=== PATIENT | male | born 1950 | race Caucasian/White ===

== ENCOUNTER 2022-10-12 12:10 | Emergency (ER) | payer BC, SELFPAY ==
[2022-10-12 12:15] VITALS: BP 126/74; PULSE 53; RESP 18; TEMP 36.6; O2SAT 97; BMI 28.8
--- NOTE | 2022-10-12 12:22 | ECG_ITS ---
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
[2022-10-12 12:44] VITALS: BP 132/70; PULSE 51
[2022-10-12 12:46] VITALS: BP 126/88; BP 130/78; PULSE 52; PULSE 55
[2022-10-12 12:47] LABS: Basophils Percent Auto 0.6 % (0.2-2.0); Eosinophils Absolute Auto 0.2 10^3/uL (0.0-0.7); Eosinophils Percent Auto 2.4 % (0.9-7.0); Hematocrit 40.4 % (42.0-54.0); Hemoglobin 13.3 g/dL (14.0-18.0); Immature Granulocytes Abs Auto 0.04 10^3/uL (0.00-0.03); Immature Granulocytes Pct Auto 0.6 % (0.0-0.5); Lymphocytes Absolute Auto 1.3 10^3/uL (1.2-3.8); Lymphocytes Percent Auto 21.4 % (20.5-60.0); Mean Corpuscular HGB Conc 32.9 g/dL (29.9-35.2); Mean Corpuscular Hemoglobin 28.9 pg (25.9-34.0); Mean Corpuscular Volume 87.6 fL (80.0-94.0); Mean Platelet Volume 10.4 fL (9.5-13.5); Monocytes Absolute Auto 0.4 10^3/uL (0.3-0.8); Monocytes Percent Auto 6.8 % (1.7-12.0); Neutrophils Absolute Auto 4.2 10^3/uL (1.4-6.5); Neutrophils Percent Auto 68.2 % (43.0-75.0); Platelet Count 278 10^3/uL (150-450); Red Blood Count 4.61 10^6/uL (4.70-6.10); Red Cell Distribution Width 13.5 % (11.0-15.0); White Blood Count 6.2 10^3/uL (4.0-11.0)
[2022-10-12 12:51] LABS: Anion Gap 14.2; BUN Creatinine Ratio 12.7; Carbon Dioxide 26.3 mmol/L (21.0-32.0); Chloride 104 mmol/L (98-107); Estimated GFR (African America >60 (>=60); Estimated GFR (Non-African Ame >60 (>=60); Glucose 103 mg/dL (74-106); Potassium 4.5 mmol/L (3.5-5.1); Sodium 140 mmol/L (136-145)
[2022-10-12] MEDS: MECLIZINE HCL 12.5 MG TABLET 25 MG PO (13:06)
--- NOTE | 2022-10-12 13:20 | ED_ITS ---
HPI - Dizziness General Chief Complaint: Dizziness Stated Complaint: NAUSEA/DIZZINESS Time Seen by Provider: 10/12/22 12:17 Source: patient Mode of arrival: walk-in History of Present Illness HPI Narrative: patient has been experiencing morning dizziness for the last couple of weeks. Denies recent injury to the head or neck. No URI symptoms immediately prior to the onset of the dizziness. He has not previously been diagnosed with vertigo. He describes it as the sensation of movement or spinning when he first wakes - it resolves as he gets up and performs his ADLs. No recent visual changes or ringing in the ears - he had visual changes 2 years ago and had his prescription checked and it was ok . He also gets whooshing or roaring in both ears but that is also chronic. No recent vomiting or diarrhea. he said that his appetite has been normal. Related Data Previous Rx's Medication Instructions Recorded meclizine 25 mg tablet 25 mg PO TID PRN dizziness #30 tabs 10/12/22 Allergies Allergy/AdvReac Type Severity Reaction Status Date / Time No Known Drug Allergies Allergy Verified 10/12/22 12:22 Exam Narrative Exam Narrative: Nurses notes and vital signs reviewed and patient is not hypoxic. afebrile General: Well-appearing and in no apparent distress. Skin: Warm, dry, no pallor noted. Head: Normocephalic, atraumatic. Neck: Supple, non-tender. no carotid bruits. Eye: Pupils are equal, round and EOMI. No scleral icterus. Ears, Nose, Mouth, and Throat: TM are clear, no nasal mucosal hypertrophy. Oral mucosa is moist, no posterior oropharynx erythema, uvula is mid-line Cardiovascular: Regular Rate and Rhythm without murmur, gallop or rub. Respiratory: No accessory muscle use or respiratory distress. Lungs are clear to auscultation, no wheezing, rales or rhonchi Musculoskeletal: normal ROM, no calf or popliteal tenderness, no lower extremity edema/swelling GI: Abdomen is soft, non-distended. Normal bowel sounds. No tenderness to palpation. No rebound, guarding, or rigidity noted. Neurological: A&O x4. No cranial nerve dysfunction observed. No truncal ataxia. Moves all extremities. Sensation intact. Psychiatric: Cooperative and interactive. Normal mood and affect. Constitutional Vital Signs, click to edit/add: Last Vital Signs Temp 97.9 F 08/24/23 12:15 Pulse 52 L 10/12/22 12:46 Resp 18 10/12/22 12:15 BP 126/88 10/12/22 12:46 Pulse Ox 97 10/12/22 12:15 O2 Del Method Room Air 10/12/22 12:15 Course Vital Signs Vital signs: Vital Signs Temperature 97.9 F 10/12/22 12:15 Pulse Rate 53 L 10/12/22 12:15 Respiratory Rate 18 10/12/22 12:15 Blood Pressure 126/74 10/12/22 12:15 Pulse Oximetry 97 10/12/22 12:15 Oxygen Delivery Method Room Air 10/12/22 12:15 Temperature 97.9 F 10/12/22 12:15 Pulse Rate 52 L 10/12/22 12:46 Respiratory Rate 18 10/12/22 12:15 Blood Pressure 126/88 10/12/22 12:46 Pulse Oximetry 97 10/12/22 12:15 Oxygen Delivery Method Room Air 10/12/22 12:15 MDM - Dizziness MDM Narrative Medical decision making narrative: Patient was placed on telemetry monitor and EKG obtained. Blood drawn and sent for evaluation. orthostatic vital signs were negative. at this time, positional changes and movement of the head did not causes patient to develop symptoms. He is asymptomatic. I informed the patient of his negative workup. I prescribed meclizine for him to take twice a day over the next few days to see if that resolves his morning dizziness. He can see his primary care physician for follow-up. Lab Data Attestation: I reviewed the patient's lab results. Labs: Lab Results 10/12/22 Range/Units 12:30 WBC 6.2 (4.0-11.0) 10^3/uL RBC 4.61 L (4.70-6.10) 10^6/uL Hgb 13.3 L (14.0-18.0) g/dL Hct 40.4 L (42.0-54.0) % MCV 87.6 (80.0-94.0) fL MCH 28.9 (25.9-34.0) pg MCHC 32.9 (29.9-35.2) g/dL RDW 13.5 (11.0-15.0) % Plt Count 278 (150-450) 10^3/uL MPV 10.4 (9.5-13.5) fL Neut % (Auto) 68.2 (43.0-75.0) % Lymph % (Auto) 21.4 (20.5-60.0) % [place] % (Auto) 6.8 (1.7-12.0) % Eos % (Auto) 2.4 (0.9-7.0) % Baso % (Auto) 0.6 (0.2-2.0) % Neut # (Auto) 4.2 (1.4-6.5) 10^3/uL Lymph # (Auto) 1.3 (1.2-3.8) 10^3/uL [place] # (Auto) 0.4 (0.3-0.8) 10^3/uL Eos # (Auto) 0.2 (0.0-0.7) 10^3/uL Baso # (Auto) 0.0 (0.0-0.1) 10^3/uL Abs Immat Gran (auto) 0.04 H (0.00-0.03) 10^3/uL Imm/Tot Granulo (auto) 0.6 H (0.0-0.5) % Sodium 140 (136-145) mmol/L Potassium 4.5 (3.5-5.1) mmol/L Chloride 104 (98-107) mmol/L Carbon Dioxide 26.3 (21.0-32.0) mmol/L Anion Gap 14.2 BUN 15.0 (7.0-18.0) mg/dL Creatinine 1.18 (0.70-1.30) mg/dL Est GFR ( Amer) >60 (>=60) Est GFR (Non-Af Amer) >60 (>=60) BUN/Creatinine Ratio 12.7 Glucose 103 (74-106) mg/dL Calcium 9.0 (8.5-10.1) mg/dL ECG Data Attestation: I personally reviewed and interpreted this ECG as follows: Interpretation: EKG interpretation: Emergency Department physician interpretation. sinus bradycardia rhythm at 50bpm. Normal axis, normal intervals, we'll discharge her for left ventricular hypertrophy, RSR in lead V1 consistent with right ventricular conduction delay. no ST segment elevation or depression. Discharge Plan Discharge Chief Complaint: Dizziness Clinical Impression: Dizziness Patient Disposition: Home, Self-Care Time of Disposition Decision: 13:25 Prescriptions / Home Meds: New meclizine 25 mg tablet 25 mg PO TID PRN (Reason: dizziness) Qty: 30 0RF Instructions: Dizziness (ED) Stand Alone Forms: Portal Instructions Referrals: Physician,Non-Staff, MD [Primary Care Provider] - 1 week
== END 2022-10-12 13:33 | disposition home or self-care (01) ==
PROVIDERS: Emergency Provider Emergency Medicine
DX: R42 Dizziness and giddiness (principal)
CPT/HCPCS: 36415; 80048; 85025; 93005; 99284

== ENCOUNTER 2025-01-21 11:24 | Emergency (ER) | payer MEDICARE, BC, SELFPAY ==
--- OUTSIDE RECORDS SUMMARY | 2025-01-07 19:11 | XMS_ITS | Continuity of Care Document ---
Author Organization [facility] Address [address] [place] [address] Phone Care Team Providers Care Bee Worker Name Role Phone Berry Guo MD Attending Provider NON STAFF Primary Care Provider Unavailabl e Care Teams Patient Care Team Team Status: Active Member Role/Relationship Status Dates NON STAFF Primary Care Provider Active Visit Care Team Team Status: Inactive Member Role/Relationship Status Dates Berry Guo MD Attending Provider Activ e Start: January 07, 2025 End: January 07, 2025NON STAFFPrimary Care ProviderActiveStart: January 07, 2025 End: January 07, 2025 Visit Care Team Team Status: Inactive Member Role/Relationship Status Dates NON STAFF Primary Care Provider Active Start: January 07, 2025 End: January 07, 2025Geormichelle Guo MDAttending ProviderActive Start: January 07, 2025 End: January 07, 2025 Chief Complaint and Reason for Visit Chief Complaint Admit Date WEAVER and dizziness January 07, 2025 8:47am Reason for Visit Admit Date Aortic aneurysm, thoracic January 07, 2025 8:47am Aortic stenosis January 07, 2025 8:47am Essential (primary) hypertension Novembe r 2024 8:47am Sinus bradycardia January 07, 2025 8:47am Allergies, Adverse Reactions, Alerts Allergen Type Severity Reaction Last Updated Verified Status No Known Allergies Allergy Unknown January 07, 2025 8:59amYesActive Social History Smoking Status Status Start Date End Date Date of Observa tion Never smoked tobacco (finding) January 07, 2025 9:03am Observation Status Observation Response Date of Response Legal Sex [facility] (finding) [facility] 1950 Family History Relationship Condition Age at Onset Recorded Date/T carlee father Hypertension Unknown DeceasedUnknownHeart diseaseUnknownmotherDeceasedUnknown Problems Active Problems Problem Diagnosis/Recorded Date Onset Date Stat Aortic aneurysm, thoracic January 07, 2025 10:31am Unknown Active Aortic stenosis January 07, 2025 10:31am Unknown Active Essential (primary) hypertension January 07, 2025 1 0:31am Unknown Active Medications Medication Status Dose Units Route Directions Qty Days Refills S tart Date Stop Date End Date Reason(s) Instructions Adherence Carvedilol 25 mg tablet Active 25 MG PO Twice da jody January 07, 2025 12:00amUnknownPravastatin 40 mg fnfkuqTrrtes09QBAEPrwai January 07, 2025 12:00amUnknownAspirin (Adult Low Dose Aspirin) 81 mg tablet,delayed release (DR/EC)Ihhzhf85PGDJIrmbaRxgqwqqr 19th, 2025 12:00am UnknownLosartan 100 mg vxjrudFpnmqa502PWCGDjqtsUewwanzx 19th, 2025 12:00am UnknownAmlodipine 5 mg uzzzcbCbjjdq8CMRWXemih04707Zvnvqkro 19th, 2025 12:00am Unknown Vital Signs Vital Reading Result Reference Range Collection Date/Time Height 68.5 [in_i] January 07, 2025 9:42xaEufgtp38.27 kgJanuary 07, 2025 9:04amHeart Rate45 /zdd41-967WdsgmnemJanuary 07, 2025 9:04amRespiratory rate18 /phb65-52QyicrmxdJanuary 07, 2025 9:04amOxygen saturation by Pulse khamawjj41 %95-100January 07, 2025 9:04amBP Jxnmxgab663 mm[Hg]100-140January 07, 2025 9:04amBP Frbysznmg63 mm[Hg]60-100January 07, 2025 9:04amBMI (Body Mass Index)28.1 kg/r5VtwfctpjJanuary 07, 2025 9:04am Advance Directives Advance Directive Response Recorded Date/ Time Advance Directives Yes December 8:47am Insurance Providers Guarantor Samuel Hawkins Address [address] [place] [id number] Info.Home Phone: H Coverage Status Update:2025 Payer Group Member ID Coverage Type Subscriber Relationship to Subscriber Effective Date Expiration Date Jenny BORREGO Id: [id number] J Ross Id: [id number] [address] [place] [id number] Home Phone: HSelfMedicare Nonpatient [id number] J Ross Id: [id number] [address] [place] [phone] Home Phone: HSelf Encounters Encounter Location(s) Arrival/Admit Date Discharge/Departure Date Discharge/Departure Disposition Provider(s) Departed Physician/ Provider Office Visit -[facility] Cardiology January 07, 2025 8:47am January 07, 2025 9:33am Discharged to home care or self care (routine discharge) Berry Guo MD Departed Clinical -EKG Cardiology January 07, 2025 8:48am January 07, 2025 8:49am Discharged to home care or self care (routine discharge) Berry Guo MD Recent Diagnosis Onset Date Admit Date Aortic aneurysm, thoracic Unknown Novemb er 2024 8:47am Aortic stenosis Unknown January 07, 8:47am Essential (primary) hypertension Unknown January 07, 2025 8:47am Sinus bradycardia Unknown January 07, 2025 8:47am Assessments Diagnosis Onset Date Resolution Status Admit Date Aortic aneurysm, thoracic acuteNovember 2024 8:47amAortic stenosisacuteNovember 2024 8:47am Essential (primary) hypertensionacuteNovember 2024 8:47amSinus bradycardia noneactiveNov2024 8:47am Plan of Treatment Author [facility] 10:33am# Aortic aneurysm - Thoracic ~5.0 cm aortic aneurysm at the [facility]. # Hypertension, uncontrolled - Occasionally is uncontrolled. # Aortic valve stenosis - Per patient. # Sinus bradycardia - Heart rate 45 BPM on EKG, patient on carvedilol. # Other: Prostate cancer status post radiation therapy, lung nodule, renal mass, nephrolithiasis. EKG 01/07/2025 ??? sinus bradycardia, 45 bpm, LVH, nonspecific T wave changes, QRS 80 ms, QTc 390 ms. - Continue carvedilol and losartan. Add amlodipine 5 mg daily for blood pressure control, prescription sent to [facility]. - Request medical records from [facility] including echocardiogram and CT/CTA chest from August-September 2024, stress test results, and cardiac catheterization records. - Will consider cardiothoracic surgery referral to [facility] for evaluation of aortic aneurysm and aortic valve disease once imaging is reviewed. - Defer stress testing until severity of aortic stenosis and aortic dimensions are confirmed, as severe aortic stenosis would contraindicate treadmill testing. If aortic aneurysm confirmed at 5 cm and surgery recommended, cardiac catheterization may be required prior to surgical intervention. - [facility] and formulate definitive management plan. Future Tests Future scheduled test information is unavailable Pending Tests Pending diagnostic test information is unavailable Future Visits Future appointment information is unavailable Future Procedures Future procedure information is unavailable Future Medications Future medication information is unavailable Patient Instructions Patient instructions are unavailable
[2025-01-21 11:27] VITALS: BP 138/77; PULSE 56; O2SAT 100; BMI 28.3
--- NOTE | 2025-01-21 11:38 | CT_ITS ---
The [address] [address] Patient Name: EDGAR GASCA MRN: [id number] date: 1950 Sex: M Assigned Patient Location: ER Current Patient Location: [facility] Accession/Order Number: [id number] Exam Date: 01/21/2025 12:10 Report Date: 01/21/2025 13:00 At the request of: TIANA DESOUZA MD Procedure: CT head/brain wo con CT head/brain wo con 01/21/2025 12:20 PM SIGNS AND SYMPTOMS: ^Headache TECHNIQUE:Multi-detector CT axial slices of the brain were obtained without IV contrast. CT was performed with one or more of the following dose reduction techniques: Automated exposure control, adjustment of the mA and/or kV according to patient size, or use of iterative reconstruction technique. COMPARISON: None. FINDINGS: There is no shift of the midline structures, acute intracranial bleeding, mass effects, or evidence of acute ischemia. Atherosclerotic changes are noted in the V4 segments of the vertebral arteries and intracranial segments of the internal carotid arteries. There is age-related cortical atrophy. The ventricular system is normal in size. The brainstem and the cerebellum are unremarkable. The visualized intraorbital contents and the infratemporal soft tissues show no acute abnormality. There is partial opacification of the right frontal sinus. Mild mucosal thickening is noted in the right maxillary sinus. The osseous structures in the skull base and the calvarium show no abnormality. CT/CT head/brain wo con IMPRESSION: No acute intracranial pathology. 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 Impression dictated by: Bladimir Acuna M.D. 01/21/2025 1:00 PM Dictation Location: [place] [address] Electronically authenticated by: [id number] Y Date: 01/21/2025 13:00
--- NOTE | 2025-01-21 11:38 | CT_ITS ---
The [address] [address] Patient Name: EDGAR GASCA MRN: [id number] date: 1950 Sex: M Assigned Patient Location: ER Current Patient Location: [facility] Accession/Order Number: [id number] Exam Date: 01/21/2025 12:10 Report Date: 01/21/2025 13:04 At the request of: TIANA DESOUZA MD Procedure: CT cervical spine wo con CT cervical spine wo con 01/21/2025 12:20 PM SIGN AND SYMPTOMS: ^Neck pain TECHNIQUE: Multi detector CT axial slices of the cervical spine were obtained without IV contrast. Volumetric acquisition sagittal, coronal, and 3-D reconstructions were performed and reviewed. CT was performed with one or more of the following dose reduction techniques: Automated exposure control, adjustment of the mA and/or kV according to patient size, or use of iterative reconstruction technique. COMPARISON: None. FINDINGS: There is preservation of the vertebral body heights and intervertebral discs. Facet degenerative changes are present, greatest at C3-C4 and C7-T1. No fractures or dislocations are seen. The alignment of the cervical spine is normal. The craniocervical junction is within normal limits. Degenerative changes are noted in the lateral axial joint. The prevertebral soft tissues are within normal limits. The paraspinous soft tissues are within normal limits. Atherosclerotic changes are noted in the carotid bifurcations. The lung apices are unremarkable. CT/CT cervical spine wo con IMPRESSION: No fracture or subluxation. Degenerative changes are noted throughout cervical spine as above. Impression dictated by: Bladimir Acuna M.D. 01/21/2025 1:04 PM Dictation Location: [place] [address] Electronically authenticated by: [id number] Y Date: 01/21/2025 13:04
--- NOTE | 2025-01-21 11:39 | ED_ITS ---
HPI HPI - General Adult General Chief complaint: Headache Stated complaint: HEADACHE, NECK PAIN Time Seen by Provider: 01/21/25 11:29 Source: patient Mode of arrival: walk-in Limitations: no limitations History of Present Illness HPI narrative: 74-year-old male presents for a 3-day history of neck pain and headache. No trauma or fever or localized weakness. He did not have any unusual activity. He states it feels better today than it did yesterday which was the worst day. He had meningitis he states within the last 5 years. Related Data Home Medications ?Medication ?Instructions ?Recorded ?Confirmed amlodipine 5 mg tablet 5 mg PO DAILY 01/21/2501/21 Previous Rx's ?Medication ?Instructions ?Recorded meclizine 25 mg tablet 25 mg PO TID PRN dizziness # 30 tabs 10/12/22 methocarbamol 500 mg tablet 500 mg PO Q8H PRN pain #20 tabs 01/21/25 Allergies Allergy/AdvReac Type Severity Reaction Status Date / Time No Known Drug Allergies Allergy Verified 10/12/22 12:22 Opioid HPI Opioid Management Most Recent Opioid Data: Last Pain Scale 5 Today, 12:00 Last MAR Pain Assessment Today, 12:00 Review of Systems ROS Narrative A ten point review of systems is negative except as noted above. PFSH PFSH Social History Little interest or pleasure in doing things: not at all Feeling down, depressed, or hopeless: not at all Exam Narrative Exam Narrative: Nurses note and vital signs reviewed General:The patient appears well and in no apparent distress.Patient is resting comfortably on cart. Skin:Warm, dry, no pallor noted.There is no rash noted. Head:Normocephalic, atraumatic; his neck has good range of motion though this causes some discomfort. He is able to touch his chin down on his chest. Eye: Normal conjunctiva, no drainage Ears, Nose, Mouth, and Throat: oral mucosa is moist. Nares patent. Cardiovascular:Regular Rate and Rhythm Respiratory:Patient is in no distress, no accessory muscle use, lungs are clear to auscultation, no wheezing, rales or rhonchi Back:non-tender GI: Soft and nontender Musculoskeletal: The patient has no evidence of calf tenderness, no pitting ed zenobia, symmetrical pulses noted bilaterally Neurological:A&O x4, normal speech; upper and lower extremity strength 5 out of 5 and symmetric Psychiatric:Cooperative Constitutional Vital Signs, click to edit/add: Last Vital Signs Temp 97.8 F 01/21/25 13:03 Pulse 48 L 01/21/25 12:23 Resp 18 01/21/25 12:23 BP 156/91 H 01/21/25 13:04 Pulse Ox 98 01/21/25 12:23 O2 Del Method Room Air 01/21/25 11:27 Course Vital Signs Vital signs: Vital Signs Pulse Rate 56 L 01/21/25 11:27 Respiratory Rate 18 01/21/25 11:27 Blood Pressure 138/77 01/21/25 11:27 Pulse Oximetry 100 01/21/25 11:27 Oxygen Delivery Method Room Air 01/21/25 11:27 Temperature 97.8 F 01/21/25 13:03 Pulse Rate 48 L 01/21/25 12:23 Respiratory Rate 18 01/21/25 12:23 Blood Pressure 156/91 H 01/21/25 13:04 Pulse Oximetry 98 01/21/25 12:23 Oxygen Delivery Method Room Air 01/21/25 11:27 Medical Decision Making MDM Narrative Medical decision making narrative: Brain CT is negative and CT of the C-spine shows some degenerative changes. WBC is normal. He does not have a fever. He is feeling improved after being given IV Toradol and Norflex. At this point I do not suspect meningitis and lumbar puncture is not indicated. Treatment diagnosis and follow-up were discussed with the patient. Differential Diagnosis Differential Diagnosis: Muscle pain, torticollis, cervical arthritis, meningitis Lab Data Lab results reviewed: Yes I reviewed the patient's lab results Labs: Lab Results 01/21/25 Range/Units 11:47 WBC 4.4 (4.0-11.0) 10^3/uL RBC 3.99 L (4.70-6.10) 10^6/uL Hgb 12.3 L (14.0-18.0) g/dL Hct 36.2 L (42.0-54.0) % MCV 90.7 (80.0-94.0) fL MCH 30.8 (25.9-34.0) pg MCHC 34.0 (29.9-35.2) g/dL RDW 14.8 (11.0-15.0) % Plt Count 161 (150-450) 10^3/uL MPV 9.9 (9.5-13.5) fL Seg Neuts % (Manual) 82.0 H (43.0-75.0) Lymphocytes % (Manual) 6.0 L (20.5-60.0) % Monocytes % (Manual) 8.0 (1.7-12.0) % Eosinophils % (Manual) 4.0 (0.9-7.0) % Basophils % (Manual) 0.0 L (0.2-2.0) % Neutrophils # (Manual) 3.60 (1.4-6.5) 10^3/uL Lymphocytes # (Manual) 0.26 L (1.20-3.80) 10^3/uL Monocytes # (Manual) 0.35 (0.30-0.80) 10^3/uL Eosinophils # (Manual) 0.17 (0.00-0.70) 10^3/uL Basophils # (Manual) 0.00 (0.00-0.10) 10^3/uL Sodium 139 (136-145) mmol/L Potassium 4.4 (3.5-5.1) mmol/L Chloride 105 (98-107) mmol/L Carbon Dioxide 29.4 (21.0-32.0) mmol/L Anion Gap 9.0 BUN 24.0 H (7.0-18.0) mg/dL Creatinine 1.20 (0.70-1.30) mg/dL Est GFR ( Amer) >60 (>=60 mL/min/1.73m^2) Est GFR (Non-Af Amer) 59 L (>=60 mL/min/1.73m^2) BUN/Creatinine Ratio 20.0 Glucose 107 H (74-106) mg/dL Calcium 9.1 (8.5-10.1) mg/dL Imaging Data CT scan - head: Radiologist's impression: ITS Impressions Cervical Spine CT 01/21/25 11:38 IMPRESSION: No fracture or subluxation. Degenerative changes are noted throughout cervical spine as above. Impression dictated by: Bladimir Acuna M.D. 01/21/2025 1:04 PM Dictation Location: [place] [address] Electronically authenticated by: [id number] Y Date: 01/21/2025 13:[address] 12/03/25 11:38 IMPRESSION: No acute intracranial pathology. 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 Impression dictated by: Bladimir Acuna M.D. 01/21/2025 1:00 PM Dictation Location: [facility] Electronically authenticated by: [id number] Y Date: 01/21/2025 13:00 Discharge Plan Discharge Chief Complaint: Headache Clinical Impression: Neck pain Patient Disposition: Home, Self-Care Time of Disposition Decision: 13:26 Condition: Good Mode of Transportation: Private Vehicle Prescriptions / Home Meds: New methocarbamol 500 mg tablet 500 mg PO Q8H PRN (Reason: pain) Qty: 20 0RF No Action meclizine 25 mg tablet 25 mg PO TID PRN (Reason: dizziness) Qty: 30 0RF amlodipine 5 mg tablet 5 mg PO DAILY Print Language: Maltese Instructions: Neck Pain (ED) Referrals: Physician,Non-Staff, MD [Primary Care Provider] - 1 week
[2025-01-21 11:54] LABS: Hematocrit 36.2 % (42.0-54.0); Hemoglobin 12.3 g/dL (14.0-18.0); Mean Corpuscular HGB Conc 34.0 g/dL (29.9-35.2); Mean Corpuscular Hemoglobin 30.8 pg (25.9-34.0); Mean Corpuscular Volume 90.7 fL (80.0-94.0); Platelet Count 161 10^3/uL (150-450); Red Blood Count 3.99 10^6/uL (4.70-6.10); White Blood Count 4.4 10^3/uL (4.0-11.0)
[2025-01-21] MEDS: KETOROLAC TROMETHAMINE 30 MG/ML VIAL IVP (12:00)
[2025-01-21] MEDS: ORPHENADRINE 60 MG/2 ML VIAL IV (12:00)
[2025-01-21 12:03] LABS: Anion Gap 9.0; Blood Urea Nitrogen 24.0 mg/dL (7.0-18.0); Calcium 9.1 mg/dL (8.5-10.1); Carbon Dioxide 29.4 mmol/L (21.0-32.0); Chloride 105 mmol/L (98-107); Estimated GFR (African America >60 (>=60 mL/min/1.73m^2); Estimated GFR (Non-African Ame 59 (>=60 mL/min/1.73m^2); Glucose 107 mg/dL (74-106); Potassium 4.4 mmol/L (3.5-5.1); Sodium 139 mmol/L (136-145)
[2025-01-21 12:23] VITALS: BP 141/80; PULSE 48; O2SAT 98
[2025-01-21 12:29] LABS: Basophils Abs Manual 0.00 10^3/uL (0.00-0.10); Basophils Percent Manual 0.0 % (0.2-2.0); Eosinophils Absolute Manual 0.17 10^3/uL (0.00-0.70); Eosinophils Percent Manual 4.0 % (0.9-7.0); Lymphocytes Absolute Manual 0.26 10^3/uL (1.20-3.80); Lymphocytes Percent Manual 6.0 % (20.5-60.0); Monocytes Absolute Manual 0.35 10^3/uL (0.30-0.80); Monocytes Percent Manual 8.0 % (1.7-12.0); Segmented Neut Absolute Manual 3.60 10^3/uL (1.4-6.5); Segmented Neutrophils % Manual 82.0 (43.0-75.0)
[2025-01-21 13:03] VITALS: TEMP 36.6
[2025-01-21 13:04] VITALS: BP 156/91
== END 2025-01-21 13:32 | disposition home or self-care (01) ==
PROVIDERS: Emergency Provider Emergency Medicine
DX: M54.2 Cervicalgia (principal)
CPT/HCPCS: 36415; 70450; 72125; 76376; 80048; 85007; 85027; 96374; 96375; 99284; J1885; J2360